=== PATIENT | female | born 1950 | race Caucasian/White ===

== ENCOUNTER 2019-03-15 09:10 | Inpatient (IN) ==
--- NOTE | 2019-02-23 14:40 | PAT Medication Instructions ---
Medication Instructions Date of Service February 23, 2019 Home Medications aspirin [Aspir-81] 81 mg PO QAM celecoxib [Celebrex] 200 mg PO QAM PRN cholecalciferol (vitamin D3) [Vitamin D3] 400 unit PO QAM simvastatin 20 mg PO PM ASK your surgeon for instructions celecoxib [Celebrex] 200 mg PO QAM PRN DO NOT take the morning of surgery cholecalciferol (vitamin D3) [Vitamin D3] 400 unit PO QAM Take morning of surgery With a small sip of water, OTHERWISE NOTHING TO EAT OR DRINK AFTER MIDNIGHT: aspirin [Aspir-81] 81 mg PO QAM Take evening before surgery simvastatin 20 mg PO PM Other Notes If you have any questions please call us at [phone] or [phone] or [phone] or [phone]
--- NOTE | 2019-02-27 13:16 | Anesthesiology Consultation ---
Date of Service February 27, 2019 Assessment & Plan (1) Encounter for pre-operative examination: - Cardio: 02/22/19: no active cardiovascular conditions.. no cardiovascular risk factors.. From a functional capacity standpoint, she is limited due to left hip pain however she can complete activities of daily living at a 4 METS level.. do not recommend further invasive or noninvasive testing prior to undergoing planned surgery. Should be considered a low cardiovascular risk candidate." Given reported hx of MVP per patient (no murmur noted on cardio exam; I/ systolic murmur on PAT exam), ECHO ordered for further evaluation but "ECHO not required prior to surgery if unable to schedule prior to surgery date" per cardio. ECHO was done 03/13; ECHO still not reviewed 03/14 PM. [facility] (Dr. Son) will fax ECHO report to same day for anesthesiologist to review AM DOS. - PCP: 03/13/19: Preop testing reviewed. "I find nothing in these reports that would delay her planned surgical procedure. Patient is felt to be an acceptable risk for the planned procedure." Chart Review Chart Review: Patient seen in Pre Admission Testing Teaching & Discussion Pre-Anesthesia Teaching/Discussion Notes: Instructed NPO after midnight before surgery,except medications with 15 cc of water. Medication instructions provided according to the PAT guidelines. History Surgery Operation Date: 03/15/19 11:30 Proposed Procedures p Left Anterior Total Hip Arthroplasty - Valeriano Jeffers DO Height/Weight Height: 5 ft 6 in Weight: 73.1 kg Allergies Allergy/AdvReac Type Severity Reaction Status Date / Time No Known Allergies Allergy Verified 02/20/19 12:13 Medications Home Medications Medication Instructions Recorded Confirmed Last Taken aspirin [Aspir-81] 81 mg PO QAM 02/20/19 02/20/19 Unknown celecoxib [Celebrex] 200 mg PO QAM PRN 02/20/19 02/20/19 Unknown cholecalciferol (vitamin D3) 400 unit PO QAM 02/20/19 02/20/19 Unknown [Vitamin D3] simvastatin 20 mg PO PM 02/20/19 02/20/19 Unknown Past Medical History Medical History Chronic back pain OCCASIONAL GERD (gastroesophageal reflux disease) CONTROLLED Hyperlipidemia MVP (mitral valve prolapse) HX- NO PREMED FOR DENTAL WORK Osteoarthritis Exercise / Class Metabolic Activity III < 4 Walking/Shop/Light housework Past Surgical History Surgical History History of bilateral tubal ligation History of colonoscopy X2 History of tonsillectomy Past Anesthesia History No Hx of Anesthesia Complications and No Family Hx of Anesthesia Complications History of PONV No Hx of PONV and No Hx of Motion Sickness Social History Smoking Status: Never smoker Do You Dip or Chew Tobacco: No Hx Alcohol Use: No Hx Substance Use: No substance use type: does not use Review of Systems Patient denies chest pain, shortness of breath, cough, wheezing, palpitations. Physical Exam Vital Signs VITALS BP 161/80 (120/80 at appointment earlier today)* P 62 TEMP 97.9 SP02 94%RA RESP 18 PHYSICAL Full neck and c-spine range of motion. Full TMJ range of motion. TMD 2 finger breaths (small chin) Mallampati Score 3 Dentition: missing molars, permanent retainer wire on lower teeth, cap on molar Lungs: clear throughout to auscultation Cardiac: regular rate and rhythm, I/ systolic murmur Spine: normal Carotid arteries: negative bruit Extremities: no edema Testing Laboratory Results 02/27/19 14:01 02/27/19 14:01 02/27/19 14:01 Urine Color Yellow Urine Appearance Clear Urine pH 5.0 Ur Specific [place] 1.018 Urine Protein Negative Urine Glucose (UA) Negative Urine Ketones Negative Urine Nitrite Negative Ur Leukocyte Esterase 1+ H Urine WBC (Auto) 10-30 H Urine RBC (Auto) 0-4 U Hyaline Cast (Auto) 1-5 U Epithel Cells (Auto) >30 H Urine Bacteria (Auto) Negative 02/27/19 PT 10.9 PTT 27.1 INR 1.1 HGBA1C 5.4% T&S O+Ab- Electrocardiogram Date: 02/22/19 SR at 67bpm. Low voltage in precordial leads. Chest X-Ray Date: 02/27/19 Findings: + NAD Atherosclerosis of the aortic arch.
--- NOTE | 2019-02-27 14:22 | XRay Report ---
XR chest Pre-admission PA/Lat CLINICAL HISTORY: 68 years-old Female presenting with preoperative evaluation. TECHNIQUE: PA and lateral views of the chest were obtained. COMPARISON: None. FINDINGS: Atherosclerosis of the aortic arch. Cardiac silhouette normal in size. Lungs and pleural spaces clear . Osseous structures normal. Upper abdomen normal. IMPRESSION: 1. No acute cardiopulmonary disease. Electronically signed by: Terrell Reid M.D. 02/27/2019 2:21 PM
[2019-02-27 16:06] LABS: Basophils # (auto) 0.05 K/uL (0-0.2); Basophils % (auto) 0.8 %; Eosinophils # (auto) 0.09 K/uL (0-0.5); Eosinophils % (auto) 1.5 %; Hematocrit (blood only) 41.9 % (37-47); Hemoglobin 14.2 g/dL (12.0-16.0); Immature Granulocytes # (auto) 0.02 K/uL (0.00-0.02); Immature Granulocytes % (auto) 0.3 %; Lymphocytes # (auto) 2.23 K/uL (1.2-3.4); Lymphocytes % (auto) 36.4 %; Mean Corpuscular Hgb Conc 33.9 g/dL (32-36); Mean Corpuscular Volume 90.3 fL (80-100); Mean Platelet Volume 11.6 fL (7.4-10.4); Monocytes # (auto) 0.48 K/uL (0.11-0.59); Monocytes % (auto) 7.8 %; Neutrophils # (auto) 3.25 K/uL (1.4-6.5); Neutrophils % (auto) 53.2 %; Platelet Count 205 K/uL (130-400); RDW Coefficient of Variation 12.7 % (11.5-14.5); Red Blood Count 4.64 M/uL (4.2-5.4); White Blood Count 6.12 K/uL (4.8-10.8)
[2019-02-27 16:10] LABS: Appearance Urine Clear (Clear); Bacteria Urine Automated Negative (Negative); Bilirubin Urine Negative (Negative); Blood Urine Negative (Negative); Color Urine Yellow; Epithelial Cell Urine Auto >30 /lpf (0-5); Glucose Urine UA Negative (Negative); Ketones Urine Negative (Negative); Leukocyte Esterase Urine 1+ (Negative); Nitrite Urine Negative (Negative); Protein Urine Negative (Negative); RBC Urine Automated 0-4 /hpf (0-4); Specific Gravity Urine 1.018 (1.000-1.030); Urobilinogen Urine Negative (Negative)
[2019-02-27 16:13] LABS: Albumin Level 3.6 gm/dl (3.4-5.0); BUN Creatinine Ratio 22.9 (10-20); Creatinine Clr Calc Pharmacy 84.8 ml/min; Est GFR (African American) 105.7; Est GFR (Non-African American) 91.2; Potassium 4.1 mmol/L (3.5-5.1)
[2019-02-27 16:19] LABS: INR 1.1 (0.9-1.1); Partial Thromboplastin Time 27.1 Seconds (21.0-31.0); Prothrombin Time 10.9 Seconds (9.0-12.0)
[2019-02-28 05:58] LABS: Estimated Average Glucose 108 mg/dl; Hemoglobin A1C 5.4 % (4.5-5.6)
--- NOTE | 2019-03-14 22:29 | History & Physical Report ---
Date of Service March 14, 2019 Assessment & Plan (1) Degenerative joint disease of left hip: I have indicated the patient for left anterior total hip replacement. The risks, benefits and complications of surgery were explained to the patient which include but not limited to infection, acute blood loss, DVT/PE, injury to nerves, vessels, bone, soft tissue, arthrofibrosis, chronic pain, failure of the prosthesis, hip dislocation, leg length discrepancy, need for additional surgery, cardiac and pulmonary events and . The patient wished to proceed with surgery and informed consent was obtained at this time. We will plan for ASA BID post-operatively for DVT prophylaxis. Upon discharge the patient will be discharged home with home health services. Appropriate clearances by PCP, cardiology were obtained. Patient has no UTI symptoms. History of Present Illness Chief Complaint: Left hip pain/djd Primary Care Provider: JALEN PCP The patient is a 69 year old female who presents with complaints of severe left hip pain and DJD. The patient has failed outpatient conservative treatments to this point which included NSAIDs, IA corticosteroid injection, home exercise, walking program. The patient's pain and limited function have progressed to the point where they severely hinder their activities of daily living and they no longer tolerate exercise programs. They are requesting to proceed with total hip replacement surgery. Allergies Allergy/AdvReac Type Severity Reaction Status Date / Time No Known Allergies Allergy Verified 03/15/19 09:42 Home Medications Home Medications Medication Instructions Recorded Confirmed Type aspirin [Aspir-81] 81 mg PO QAM 02/20/19 03/15/19 History celecoxib [Celebrex] 200 mg PO QAM PRN 02/20/19 03/15/19 History cholecalciferol (vitamin D3) 400 unit PO QAM 02/20/19 03/15/19 History [Vitamin D3] simvastatin 20 mg PO PM 02/20/19 03/15/19 History Past Med/Surg History Medical History Chronic back pain OCCASIONAL GERD (gastroesophageal reflux disease) CONTROLLED Hyperlipidemia MVP (mitral valve prolapse) HX- NO PREMED FOR DENTAL WORK Osteoarthritis Surgical History History of bilateral tubal ligation History of colonoscopy X2 History of tonsillectomy Social History Preferred Language: Croatian Communication Ability: Effective Manufacturing Engineer Required: No Beliefs That Will Affect Care: None Current Living Situation: Spouse Other Information That Helps Us Care for You: No Feels Safe at Home: Yes Safety Concerns: Feels Safe At This Time Smoking Status: Never smoker Do You Dip or Chew Tobacco: No Second Hand Exposure: No Hx Alcohol Use: No Hx Substance Use: No Review of Systems Review of Systems: All systems reviewed & are unremarkable except as noted in HPI & below Constitutional: as per Subjective / HPI Physical Exam Physical Exam: LLE NVSI +EHL/FHL/TA/GS SILT grossly, +2 DP pulse, compartments soft NT, limited painful ROM, antalgic gait Constitutional: WD/WN, vitals as above Eyes: PERRL, conjunctivae normal, anicteric sclerae ENMT: external ear and nose normal, oropharynx normal Neck: trachea midline, no thyromegaly Respiratory: normal respiratory effort, lungs clear to auscultation Cardiovascular: RRR, no murmur, no edema Gastrointestinal (Abdomen): normal bowel sounds, soft, nontender, no hepatosplenomegaly Musculoskeletal: no cyanosis or clubbing, extremities motor strength 5/5 Skin: no rashes, warm and dry Neurologic: patellar DTR's 2+ bilat, sensation intact Psychiatric: A+Ox3, euthymic affect Lymphatic: no cervical or axillary lymphadenopathy Results & Data Diagnostic Findings Multiple views of the hip demonstrates severe DJD with complete loss of the joint space. +osteophytes, +sclerosis, +subchondral cysts.
[~2019-03-15 09:10] MED LIST: ACETAMINOPHEN 500 MG TAB PO SCH; BUPIVACAINE 0.5 % 5 MG/1 ML PF 10ML VIAL ONE; CEFAZOLIN 2000MG 2,000 MG/15 ML SYR IV SCH; CeleBREX 200 MG CAP PO SCH; FAMOTIDINE 20 MG TAB PO SCH; LR 500ML BOLUS, THEN 15ML/HR IV SCH; METOCLOPRAMIDE HCL 10 MG TABLET PO SCH; MIDAZOLAM HCL 1 MG/ML 2ML VIAL ONE; TRANEXAMIC ACID 1,000 MG **IV Intra-op IV SCH; TRANEXAMIC ACID 1,000 MG **IV Pre-op IV SCH; dexAMETHasone 4 MG TAB PO SCH; fentaNYL citrate 100 MCG/2 ML VIAL ONE
[2019-03-15] MEDS ORDERED: BACITRACIN INJ 50,000 UNIT VIAL ONE (09:59)
[2019-03-15] MEDS ORDERED: ATROPINE SULFATE 0.1 MG/ML 10ML SYR IV PRN (10:25)
[2019-03-15] MEDS ORDERED: fentaNYL citrate 100 MCG/2 ML VIAL IV PRN (10:25)
[2019-03-15] MEDS ORDERED: ePHEDrine sulfate 50 MG/ML AMP IV PRN (10:25)
[2019-03-15] MEDS ORDERED: ONDANSETRON INJ 2 MG/ML 2 ML VIAL IV PRN ×2 (10:25→14:39)
[2019-03-15] MEDS ORDERED: ROPIVACAINE 0.5% HCL/PF 150 MG, BUPIVACAINE 0.5% MPF 30 ML, EPINEPHrine 30MG/30ML (OR U... INFIL SCH (10:30)
--- NOTE | 2019-03-15 11:05 | History & Physical Bridge Note ---
Date of Service March 15, 2019 History & Physical Bridge Note I have examined the patient, reviewed the History & Physical and in the interval since the performance of the History & Physical I have noted the following changes of clinical significance: no changes noted
[2019-03-15] MEDS ORDERED: PROPOFOL IV EMULSION 10 MG/ML 20 ML VIAL IV ONE (12:06)
[2019-03-15] MEDS ORDERED: ONDANSETRON INJ 2 MG/ML 2 ML VIAL ONE (12:06)
[2019-03-15] MEDS ORDERED: DEXAMETHASONE SOD INJ 4 MG/ML VIAL ONE (12:06)
[2019-03-15] MEDS ORDERED: POVIDONE-IODINE 10% OINT 30 GM TUBE EXT ONE (12:16)
[2019-03-15] MEDS ORDERED: ePHEDrine sulfate 50 MG/ML AMP ONE (12:43)
--- NOTE | 2019-03-15 12:58 | Post Operative Brief Note ---
Immediate Post Op Note v1 Date of Surgery March 15, 2019 Pre & Post Diagnosis Operation Date: 03/15/19 11:30 Pre-Op Diagnosis: Left Hip Degenerative Joint Disease Post-Op Diagnosis: Left Hip Degenerative Joint Disease Procedure Operation Date: 03/15/19 11:30 Actual Procedures p Left Anterior Total Hip Arthroplasty, Uncemented(Left) - Valeriano Jeffers DO Surgeon Valeriano Jeffers DO Merchandising Consultant Javier Lockhart Estimated Blood Loss 85 Findings Consistent with Post-Op Diagnosis Fluids 1800 cc LR Specimens femoral head Anesthesia Type Spinal MAC Complications none Disposition Disposition: Recovery Room Overlapping Procedure I was present for: the critical portions of procedure. I was immediately available: during the entire case. Back up surgeon: was not required during procedure.
--- NOTE | 2019-03-15 13:09 | Operative Report ---
Post Operative Report Pre & Post Diagnosis Operation Date: 03/15/19 11:30 Pre-Op Diagnosis: Left Hip Degenerative Joint Disease Post-Op Diagnosis: Left Hip Degenerative Joint Disease Procedure Operation Date: 03/15/19 11:30 Actual Procedures p Left Anterior Total Hip Arthroplasty, Uncemented(Left) - Valeriano Jeffers DO Surgeon Valeriano Jeffers DO Tassel Snipper Javier Lockhart Estimated Blood Loss 85 Findings Consistent with Post-Op Diagnosis Fluids 1800 cc LR Specimens Femoral head Drains Hemovac drain x1 superficial Anesthesia Type Spinal MAC Complications none Disposition Disposition: Recovery Room Indications The patient is a 69-year-old female who presents with severe progressive left hip DJD who has failed outpatient conservative treatments. I indicated the patient for a anterior total hip replacement and the risks and benefits were explained in detail which include but not limited to infection, bleeding, blood clot, damage to surrounding bone, nerves, vessels, soft tissue, hip dislocation, failure of the prosthesis, leg length discrepancy, need for additional surgery and . The patient agreed to proceed with replacement of the hip and informed consent was obtained. Appropriate clearances were obtained. Description of Procedure COMPONENTS USED: [email or web address] hip system: Acetabulum size 50, femur size 6 high offset, femoral head 32-3, liner 5032, acetabular screw 25 mm x 1. DESCRIPTION OF PROCEDURE: Following satisfactory spinal anesthesia, the patient was placed supine on the OR table. The right leg was placed in the well leg pittman and the left leg in the traction device. The left leg was prepared with ChloraPrep and draped sterilely. A surgical timeout was performed, patient identified and site kasi verified. Appropriate antibiotics were given. A standard anterior approach in the interval between the sartorius and tensor muscles was performed. Dissection was carried down through subcutaneous tissues. Electrocautery was utilized for hemostasis. Circumflex femoral vessels were identified, tied and ligated. The anterior capsular fat pad was removed and the capsulotomy was performed revealing the arthritic femoral neck and head. A femoral neck cut was made with reciprocating saw and the bone fragments removed. The acetabular self-retraining retractor was placed. Acetabular reaming was completed under fluoroscopic guidance, a 50 shell was impacted into an anatomic position and secured with a dome screw. Local anesthetic was placed and following irrigation, the polyethylene liner was placed. The femur was placed into position of external rotation, extension and adduction. Femoral canal was prepared up to the size 6 high offset. Trial reduction with a -3 neck length head showed good soft tissue tension, leg lengths restored, and good fit and fill of the proximal canal using fluoroscopic landmarks. The hip was dislocated. The trial component was removed. The final implant was placed. The hip was irrigated with sterile saline solution and reduced. A Betadine soak was performed. After 3 minutes, the hip was once more irrigated with copious sterile saline solution with bacitracin. Kristina-incisional soft tissue was injected utilizing [place] [employer] which includes a combination of Ropivicaine 0.5% 150mg, Bupivicaine 0.5%/Epinephrine 1:200,000 30ml, Toradol 30mg, Dexamethasone 4mg, Ketamine 10mg, Clonidine 100mcg and NSS 30ml solution. The capsule was then closed with 1-0 Vicryl interrupted figure of eight sutures. The fascia was closed with a running suture of #1 Vicryl, the subcutaneous tissues with 2-0 Vicryl and the skin with a running subcuticular stitch of 3-0 V-Loc. Dermabond prineo and a dry dressing were applied. The patient tolerated the procedure well and was transported to PACU in stable condition. Due to the complex nature of the procedure, the entire surgery was performed with the operational assistance of Javier Lockhart PA-C. The bankruptcy legal assistant, under direct supervision, was involved in the actual performance of all aspects of the surgical procedure including patient positioning, hemostasis, tissue retraction, instrument management and wound closure. I attest to the content of the Intraoperative Record and any orders documented therein. Any exceptions are noted below.
--- NOTE | 2019-03-15 13:22 | Fluoroscopy Report ---
FL hip LT 1V CLINICAL HISTORY: 69 years-old Female presenting with LEFT ANTERIOR HIP. TECHNIQUE: 2 fluoroscopic image(s) recorded as part of an intraoperative procedure. COMPARISON: None. FINDINGS/IMPRESSION: Postsurgical changes of total left hip arthroplasty. Visualized portion of the pelvis intact. No dixon lignment. Please see surgical report for further details. Fluoroscopy dosage (mGy): 9.35. Fluoroscopy time: 73.0 seconds. Number or time of high level fluoroscopy (HLF), digital spot, or digital subtraction images: 0. Electronically signed by: Terrell Reid M.D. 03/15/2019 1:20 PM
--- NOTE | 2019-03-15 14:00 | XRay Report ---
XR hip 1V LT w pelvis CLINICAL HISTORY: Postoperative evaluation. COMPARISON: None FINDINGS: Alignment of the total left hip arthroplasty is anatomic. There is no fracture or unexpect ed radiopaque foreign body. Surgical drain is in place. There is an acetabular screw. Severe right hi p osteoarthritis is noted. IMPRESSION: Expected findings following total left hip arthroplasty. Electronically signed by: Ramses Jones M.D. 03/15/2019 1:59 PM
--- NOTE | 2019-03-15 14:07 | Anesthesiology Progress Note ---
Date of Service March 15, 2019 Anesthesia Post Procedure Vital Signs Vital Signs: Temp Pulse Pulse Resp BP BP Pulse Ox 03/15/19 14:00 69 18 121/68 95 03/15/19 13:50 68 18 114/66 97 03/15/19 13:40 66 19 110/69 97 03/15/19 13:33 36.4 C L 69 21 104/69 100 03/15/19 09:53 36.4 C L 71 20 177/91 H 98 Pain Intensity Left Hip: Pain Intensity: 0 Transfer of Care Handoff Completed per policy Notes Mental Status: alert / awake / arousable Patient Amnestic to Procedure: Yes Nausea / Vomiting: adequately controlled Pain: adequately controlled Airway Patency, RR, SpO2: stable & adequate BP & HR: stable & adequate Hydration State: stable & adequate Neuraxial Anesthesia: was administered and sensory block is resolving Anesthetic Complications: no major complications apparent and Pt Satisfied with anesthetic care
[2019-03-15] MEDS ORDERED: MAGNESIUM HYDROXIDE SUSP 30 ML UDC PO PRN (14:39)
[2019-03-15] MEDS ORDERED: OXYCODONE HCL IR 5 MG TAB (IMMEDIATE RELEASE) PO PRN (14:39)
[2019-03-15] MEDS ORDERED: BISACODYL 10 MG SUPP PR PRN (14:39)
[2019-03-15] MEDS ORDERED: METOCLOPRAMIDE HCL INJ 5 MG/ML 2 ML VIAL IV PRN (14:39)
[2019-03-15] MEDS ORDERED: HYDROmorphone INJ 0.5 MG/0.5 ML SYR IV PRN (14:39)
[2019-03-15] MEDS ORDERED: SODIUM CHLORIDE 0.9% 1000ML 1,000 ML IV SCH (14:39)
[2019-03-15] MEDS ORDERED: NALOXONE HCL 0.4 MG/1 ML VIAL/CARP IV PRN (14:39)
--- NOTE | 2019-03-15 15:50 | Orthopedic Progress Note ---
Date of Service March 15, 2019 Assessment & Plan (1) Degenerative joint disease of left hip: Status post left anterior total hip arthroplasty -Ancef x24 -DVT prophylaxis: SCDs, teds, ASA twice daily -Weight-bear as tolerates left lower extremity -PT/OT -Postoperative x-ray demonstrates well aligned well fixed orthopedic prosthesis without evidence of fracture or dislocation -A.m. lab -Monitor drain output -DC planning Subjective Post Operative Progress Note Patient seenin PACU, comfortable, denies complaints, pain well controlled, no acute issues. Patient still feeling the effects of spinal anesthesia Review of Systems Review of Systems: All systems reviewed & are unremarkable except as noted in HPI & below Constitutional: as per Subjective / HPI Physical Exam Physical Exam: Physical exam limited secondary to spinal anesthesia, slightly able to wiggle toes. +2 dorsalis pedis pulse, compartment soft nontender, dressings clean dry and intact. Constitutional: WD/WN, vitals as above Results & Data Vital Signs (Past 12 Hours) Vital Signs Temp Pulse Pulse Pulse Resp BP BP 03/15/19 15:29 36.3 C L 71 18 151/77 H 03/15/19 14:40 36.4 C L 76 16 124/74 03/15/19 14:20 69 20 122/72 03/15/19 14:10 37.1 C 70 21 117/62 03/15/19 14:00 69 18 121/68 03/15/19 13:50 68 18 114/66 03/15/19 13:40 66 19 110/69 03/15/19 13:33 36.4 C L 69 21 104/69 03/15/19 09:53 36.4 C L 71 20 177/91 H Pulse Ox 03/15/19 15:29 98 03/15/19 14:40 94 03/15/19 14:20 95 03/15/19 14:10 92 03/15/19 14:00 95 03/15/19 13:50 97 03/15/19 13:40 97 03/15/19 13:33 100 03/15/19 09:53 98
[2019-03-15] MEDS: KETOROLAC TROMETHAMINE 15 MG/ML VIAL IV SCH ×2 (16:05→21:21)
[2019-03-15] MEDS: CEFAZOLIN 2000MG 2,000 MG/15 ML SYR IV SCH (19:31)
[2019-03-15] MEDS ORDERED: SIMVASTATIN 20 MG TAB PO SCH (21:00)
[2019-03-15] MEDS ORDERED: SENNA 8.6 MG TAB PO SCH (21:00)
[2019-03-15] MEDS: ACETAMINOPHEN 500 MG TAB PO SCH (21:21)
[2019-03-15] MEDS: DOCUSATE SODIUM 100 MG CAP PO SCH (21:21)
[2019-03-16] MEDS: CEFAZOLIN 2000MG 2,000 MG/15 ML SYR IV SCH (03:26)
[2019-03-16] MEDS: KETOROLAC TROMETHAMINE 15 MG/ML VIAL IV SCH ×2 (03:26→07:32)
[2019-03-16] MEDS: ACETAMINOPHEN 500 MG TAB PO SCH (05:42)
[2019-03-16 05:55] LABS: Basophils # (auto) 0.01 K/uL (0-0.2); Basophils % (auto) 0.1 %; Hematocrit (blood only) 34.8 % (37-47); Immature Granulocytes # (auto) 0.04 K/uL (0.00-0.02); Immature Granulocytes % (auto) 0.3 %; Lymphocytes # (auto) 1.32 K/uL (1.2-3.4); Lymphocytes % (auto) 9.4 %; Mean Corpuscular Hgb Conc 34.5 g/dL (32-36); Mean Corpuscular Volume 89.2 fL (80-100); Monocytes # (auto) 1.04 K/uL (0.11-0.59); Monocytes % (auto) 7.4 %; Neutrophils # (auto) 11.65 K/uL (1.4-6.5); Neutrophils % (auto) 82.8 %; Platelet Count 176 K/uL (130-400); RDW Coefficient of Variation 12.7 % (11.5-14.5); RDW Standard Deviation 40.8 fL (36.4-46.3); White Blood Count 14.06 K/uL (4.8-10.8)
[2019-03-16 06:19] LABS: BUN Creatinine Ratio 21.8 (10-20); Calcium 8.1 mg/dl (8.5-10.1); Creatinine Clr Calc Pharmacy 67.8 ml/min; Est GFR (African American) 87.2; Est GFR (Non-African American) 75.2; Potassium 4.3 mmol/L (3.5-5.1)
[2019-03-16] MEDS: DOCUSATE SODIUM 100 MG CAP PO SCH (07:32)
[2019-03-16] MEDS ORDERED: MULTIVITAMIN TAB PO SCH (09:00)
[2019-03-16] MEDS ORDERED: ASPIRIN 325 MG ECTAB PO SCH (09:00)
--- NOTE | 2019-03-16 09:18 | Orthopedic Progress Note ---
Date of Service March 16, 2019 Assessment & Plan (1) Degenerative joint disease of left hip: Status post left anterior total hip arthroplasty POD#1 -Ancef x24 -DVT prophylaxis: SCDs, teds, ASA twice daily -Weight-bear as tolerates left lower extremity -PT/OT -Postoperative x-ray demonstrates well aligned well fixed orthopedic prosthesis without evidence of fracture or dislocation -A.m. lab - hgb 12.0 -Monitor drain output 20cc/shift, DC today -DC planning: home with Subjective Post Operative Progress Note Patient seen sitting up in bed, comfortable, denies complaints, pain well controlled, no acute issues. Review of Systems Review of Systems: All systems reviewed & are unremarkable except as noted in HPI & below Constitutional: as per Subjective / HPI Physical Exam Physical Exam: LLE NVSI +EHL/FHL/TA/GS SILT grossly, +2 DP pulse, compartments soft NT, dressing cdi. Constitutional: WD/WN, vitals as above Results & Data Vital Signs (Past 12 Hours) Vital Signs Temp Pulse Pulse Resp BP BP Pulse Ox 03/16/19 07:52 36.4 C L 68 20 112/69 95 03/16/19 03:33 36.5 C 68 16 120/67 94 03/15/19 23:37 36.5 C 64 16 109/63 96
[2019-03-16] MEDS ORDERED: CeleBREX 200 MG CAP PO SCH (21:00)
--- NOTE | 2019-03-17 12:06 | Discharge Summary ---
Date of Service March 17, 2019 Admission HPI Per Admitting Provider The patient is a 69 year old female who presents with complaints of severe left hip pain and DJD. The patient has failed outpatient conservative treatments to this point which included NSAIDs, IA corticosteroid injection, home exercise, walking program. The patient's pain and limited function have progressed to the point where they severely hinder their activities of daily living and they no longer tolerate exercise programs. They are requesting to proceed with total hip replacement surgery. Principal Diagnosis Left anterior total hip replacement Discharge Exam LLE NVSI +EHL/FHL/TA/GS SILT grossly, +2 DP pulse, compartments soft NT, dressing cdi. Constitutional WD/WN, vitals as above Discharge Data Allergies Allergy/AdvReac Type Severity Reaction Status Date / Time No Known Allergies Allergy Verified 03/15/19 09:42 Consultations 03/16/19 08:00 Consult Case Management - Discharge Planning Routine Procedures Performed Operation Date: 03/15/19 11:30 Actual Procedures p Total Hip Arthroplasty Uncemt Anterior(Left) - Valeriano Jeffers DO Ordered Studies 03/15/19 11:30 FL fluoroscopy <1hr Routine FL hip LT 1V Routine Hospital Course (1) Degenerative joint disease of left hip: The patient is a 69 -year-old female who presents with long standing history of severe left hip DJD and failed outpatient conservative treatments including NSAIDs, bracing, injections and home walking/exercise program. The patient's symptoms have progressed to the point where it has been difficult to perform e remedios normal activities of daily living. I indicated the patient for a left anterior total hip arthroplasty, the risks, benefits and complications of the procedure include but not limited to infectio n, bleeding, damage to bone, nerves, vessels, surrounding soft tissue, may develop blood clots, loss of function, leg length discrepancy, dislocation, failure of the components, loosening of the components, the need for additional surgery and . The patient wished to proceed with surgery at this time and informed consent was obtained. Hospital Course: On 03/15/19 the patient was taken to the operating room, adequate anesthesia administered and underwent a left anterior total hip arthroplasty. The patient tolerated the procedure well and was taken to the PACU in stable condition. Pos t-operatively the patient was started on a DVT ppx medication and given appropriate IV antibiotics. Consults were placed to physical therapy, occupational therapy and case management. On POD#1, the patient did well overnight and their pain was well controlled. Labs were drawn and the Hgb was 12.0. The patient progressed well with PT. Dressings were changed at this time and the incision was clean, dry and intact. HMV drain had low output, 20cc/shift and DC'd. The patients hospital stay was relatively uneventful and they were deemed stable by the orthopedic team and consultants to be discharged home with HH on 03/16/19. Discharge Instructions: Upon discharge the patient may weight bear as tolerates through their operative extremity. They were instructed to keep the incision clean and dry at all times. The patient may shower but should not submerge the incision, avoid bathing, pools and hot tubes. The patient was given a script for pain medication and should take as instructed. The patient was given a script for DVT ppx ASA 325mg BID and should take as directed. The patient was instructed to not drive or travel for long distances until cleared to do so. If the patie nt develops any symptoms of fevers, chills, nausea, vomiting, increased redness, swelling, pain or drainage from the surgical site, they should notify the office and/or proceed to the nearest emergency room. The patient should follow up in 10-14 days after surgery for their routine post-operative follow-up appointment and should call the office to confirm the date and time. Status post left anterior total hip arthroplasty POD#1 -Ancef x24 -DVT prophylaxis: SCDs, teds, ASA twice daily -Weight-bear as tolerates left lower extremity -PT/OT -Postoperative x-ray demonstrates well aligned well fixed orthopedic prosthesis without evidence of fracture or dislocation -A.m. lab - hgb 12.0 -Monitor drain output 20cc/shift, DC today -DC planning: home with HH Total Time Total Time Spent Total Time Spent (In Minutes): 60 minutes Total Time Includes: Examination of the Patient, Discharge Planning, Medication Reconciliation and Communication With Other Providers Discharge Plan Discharge Items Patient Disposition: Home - Home Health Services Reason For Visit: LEFT HIP OSTEOARTHRITIS Discharge Diagnosis: Left anterior total hip replacement Discharge Goals: Decrease discomfort, Improve function, Increase independence and Therapeutic intervention Activity: Per 'Additional Instructions' section Lifting: Wait until after follow-up appointment Bathing Comment: No bathing, pools or hot tubs Sexual Activity: Wait until after follow-up appointment Exercise/Sports: Wait until after follow-up appointment Driving/Machine Use Comment: No driving till cleared by your surgeon Weightbearing: Left weightbearing Non-emergency contact: Primary Care Provider and Surgeon Call non-emergency contact if: you have any medication questions, your symptoms worsen, your pain is not controlled, your pain is worsening, your pain is unusual for you, your pain is concerning for you, you have a fever, your temperature is above 101, your wound has increased redness, your wound has increased drainage and your wound pain has increased Follow-up/Referrals: PCP,NO [Primary Care Provider] - Diet: Regular Addtl Provider Instructions: ACTIVITY RECOMMENDATIONS: SELF CARE INSTRUCTIONS AFTER TOTAL HIP REPLACEMENT : Direct Anterior Approach Until the incision and soft tissues around your hip have healed, there is a possibility that the hip prosthesis could dislocate. A. Hip flexion ( Up & Down out of chair or steps ) may be difficult. This is normal. B. Numbness in front of the thigh is also normal for a few weeks. C. Use hand rails when walking on stairs. D. Wear low heeled shoes with non-slip soles. E. Be sure that your floors are free of things that could trip you - throw rugs, electrical cords, small objects. Avoid wet and waxed floors, especially with crutches and canes. F. Try to walk several times a day with rest periods between. G. Continue with all the exercises taught to you in the hospital. Again, make walking a part of your daily routine. SPECIAL CARE INSTRUCTIONS: VERY IMPORTANT TO READ AND REVIEW A. You may still be at risk for phlebitis and blood clots. 1. Wear surgical stockings (KARLY hose) for 2 weeks after surgery to improve circulation and reduce swelling. 2. Take Aspirin 325mg twice daily for 4 weeks or as directed by your doctor. This is your blood thinner. 3. High risk patients may be prescribed a stronger blood thinner if necessary. 4. If you are on Coumadin normally, your family doctor/statistical assistant should monitor your blood work. Expect a phone call the day of or the day after bloodwork is drawn to adjust your dosage. B. You must take antibiotics before having dental work, bladder, bowel and other surgery. Your doctor will provide you with a permanent card to carry describing precautions. C. Call [facility] if you have a fever, redness or swelling around the incision, cloudy drainage from incision, or sudden increase in pain in your hip, not relieved by your regular pain medication. D. Please call the office at if you have any concerns or questions about your operation or recovery. * YOU MAY SHOWER, NO TUB BATHS UNTIL CLEARED BY YOUR DOCTOR. - Keep an extra close eye on the top portion of your incision. Be sure to keep clean & dry. * WEAR KARLY HOSE 20 HOURS PER DAY FOR 2 WEEKS. * YOU MAY PROGRESS FROM A WALKER, TO A CANE, TO INDEPENDENT AT YOUR OWN PACE. * MOST PATIENTS WILL HAVE HOME NURSING FOR THERAPY. IF YOU DECIDE TO DO OUTPATIENT PHYSICAL THERAPY, PLEASE SCHEDULE THIS 3 TIMES PER WEEK. * DERMABOND Prineo- This is a mesh tape dressing that is covered with glue. It should remain in place until the incision is properly healed, usually 10-14 days. This dressing is designed to naturally slough off. You may trim the excess mesh tape as it peels off. Incision may be briefly wet in a shower. Dry immediately by blotting with a clean, dry towel. Do not bath or swim until instructed by your doctor. Do not scratch, rub, or pick at the dressing. Do not apply any topical ointments or lotions until dressing is completely removed and/or instructed by your doctor. There may be a small piece of suture material at one end of your incision. Do not pull or trim this. If it is bothersome or catching on clothing, you may cover it with a band-aid. FOLLOW UP VISIT: If appointment is not already scheduled: Please call [facility] to make a follow-up appointment for 2 weeks after your surgery at . Prescriptions: New acetaminophen [Tylenol Extra Strength] 500 mg Tablet 1,000 mg PO Q8 PRN (Reason: pain) Qty: 90 RF: 0 aspirin 325 mg Tablet,Delayed Release (Dr/Ec) 325 mg PO BID 28 Days Qty: 56 RF: 0 celecoxib [Celebrex] 200 mg Capsule 200 mg PO BID PRN (Reason: pain) Qty: 28 RF: 0 oxycodone 5 mg Tablet 5 mg PO Q6H MDD 6 tabs PRN (Reason: pain) Qty: 30 RF: 0 sennosides [Senokot] 8.6 mg Tablet 17.2 mg PO HS PRN (Reason: constipation) Qty: 28 RF: 0 Continued simvastatin 20 mg Tablet 20 mg PO PM RF: 0 cholecalciferol (vitamin D3) [Vitamin D3] 400 unit Tablet 400 unit PO QAM RF: 0 Discontinued celecoxib [Celebrex] 200 mg Capsule 200 mg PO QAM PRN (Reason: Pain) RF: 0 aspirin [Aspir-81] 81 mg Tablet,Delayed Release (Dr/Ec) 81 mg PO QAM RF: 0 Stand-Alone Forms: [facility], [facility] Discharge Orders: Discharge Order (Routine); Ordered 03/16/19 Ordered By: Valeriano Jeffers Admission Data Admit Date/Time: 03/15/19 13:39 Attending Provider: Valeriano Jeffers Admit Provider: Valeriano Jeffers Primary Care Provider: PCP,NO Service: Surgical Services Other Interventions: Discharge Summary Assessment (RN) Last Done: 03/16/19 11:17 DC Date/Time DO NOT enter until pt leaves facility: 03/16/19 13:11
== END 2019-03-16 13:11 | disposition home health service (06) | DRG 470 ==
LOC: ASU 09:10 → 3E 13:39

== ENCOUNTER 2019-11-27 07:14 | Inpatient (IN) ==
--- NOTE | 2019-11-13 10:31 | PAT Medication Instructions ---
Medication Instructions Date of Service November 13, 2019 Home Medications Medication Instructions Recorded acetaminophen [Tylenol Extra 1,000 mg PO Q8 PRN #90 tab 03/15/19 Strength] oxycodone 5 mg PO Q6H PRN #30 tab MDD 6 tabs 03/15/19 cholecalciferol (vitamin D3) [Vitamin D3] 1,000 unit PO QAM simvastatin 20 mg PO PM acetaminophen [Tylenol Extra Strength] 1,000 mg PO Q8 PRN oxycodone 5 mg PO Q6H PRN #30 tab MDD celecoxib [Celebrex] 200 mg PO QAM PRN sennosides [Senokot] 17.2 mg PO HS ASK your surgeon for instructions celecoxib [Celebrex] 200 mg PO QAM PRN DO NOT take the morning of surgery cholecalciferol (vitamin D3) [Vitamin D3] 1,000 unit PO QAM Take morning of surgery With a small sip of water, OTHERWISE NOTHING TO EAT OR DRINK AFTER MIDNIGHT: acetaminophen [Tylenol Extra Strength] 1,000 mg PO Q8 PRN (okay to take up to 4 hours prior to surgery if needed) oxycodone 5 mg PO Q6H PRN #30 tab MDD (okay to take up to 4 hours prior to surgery if needed) Take evening before surgery sennosides [Senokot] 17.2 mg PO HS simvastatin 20 mg PO PM acetaminophen [Tylenol Extra Strength] 1,000 mg PO Q8 PRN (if needed) oxycodone 5 mg PO Q6H PRN (if needed) Other Notes If you have any questions please call us at [phone] or [phone] or [phone] or [phone]
--- NOTE | 2019-11-14 15:37 | Anesthesiology Consultation ---
Date of Service November 14, 2019 Assessment & Plan (1) Encounter for pre-operative examination: PCP clearance 11/21/2019: "I find no significant abnormalities that would delay her planned surgical procedure. As noted she had cardiac clearance performed by her cardiology group and was felt to be an acceptable risk from cardiac standpoint." Cardiology clearance 11/07/2019: "Based on history physical examination and the above information, do not recommend further invasive or noninvasive cardiovascular testing or procedures prior to undergoing planned hip replacement surgery. Patient should be considered a low cardiovascular risk candidate." Chart Review Chart Review: Acceptable Risk for Surgery and Patient seen in Pre Admission Testing Teaching & Discussion Instructed NPO after midnight before surgery, except medications with 15 cc of water. Medication instructions provided according to the PAT guidelines. History Surgery Operation Date: 11/27/19 10:05 Proposed Procedures p Right Anterior Total Hip Arthroplasty - Valeriano Jeffers DO Height/Weight Height: 5 ft 6 in Weight: 70.76 kg Allergies Allergy/AdvReac Type Severity Reaction Status Date / Time No Known Allergies Allergy Verified 11/02/19 10:22 Medications Home Medications Medication Instructions Recorded Confirmed Last Taken cholecalciferol (vitamin D3) 1,000 unit PO QAM 02/20/19 11/02/19 03/14/19 17:00 [Vitamin D3] simvastatin 20 mg PO PM 02/20/19 11/02/19 03/14/19 20:00 acetaminophen [Tylenol Extra 1,000 mg PO Q8 PRN #90 tab 03/15/19 11/02/19 Unknown Strength] oxycodone 5 mg PO Q6H PRN #30 tab MDD 6 tabs 03/15/19 11/02/19 Unknown celecoxib [Celebrex] 200 mg PO QAM PRN 11/02/19 11/02/19 Unknown sennosides [Senokot] 17.2 mg PO HS 11/02/19 11/02/19 Unknown Past Medical History Medical History Chronic back pain OCCASIONAL Essential (primary) hypertension Patient states normally 140s systolic, PCP has said if numbers increase will discuss HTN meds GERD (gastroesophageal reflux disease) CONTROLLED Hyperlipidemia Osteoarthritis Exercise / Class Metabolic Activity II 4-5 Yardwork/Stairs/Walk up hill Past Surgical History Surgical History History of bilateral tubal ligation History of colonoscopy X2 History of tonsillectomy History of total hip arthroplasty LEFT Varicose vein of leg RIGHT LEG-ABLATION Past Anesthesia History No Hx of Anesthesia Complications and No Family Hx of Anesthesia Complications History of PONV No Hx of PONV and No Hx of Motion Sickness Social History Smoking Status: Never smoker Do You Dip or Chew Tobacco: No Hx Alcohol Use: Yes Alcohol type: beer alcohol intake frequency: holidays/special occasions only (very rare) Hx Substance Use: No substance use type: does not use Review of Systems Pt denies any recent chest pain, shortness of breath, palpitations, cough, fever or URI. Physical Exam Vital Signs BP: 151/83 P: 62bpm SPO2: 97% RA T: 97.5 F R: 18 ENMT Mouth: + dental restorations (1 crown); no chipped teeth and no loose teeth Thyromental Distance: < 3.5 Finger Breadths (3) Mallampati Class: II Neck normal visual inspection; neck extension not limited Respiratory normal respiratory effort Auscultation: lungs clear to auscultation bilaterally Cardiovascular Rate/Rhythm: regular rate and regular rhythm Heart Sounds: no murmur Testing Laboratory Results 11/14/19 15:43 11/14/19 15:43 PT 10.8 Seconds (9.0-12.0) 11/14/19 15:43 INR 1.1 (0.9-1.1) 11/14/19 15:43 APTT 26.1 Seconds (21.0-31.0) 11/14/19 15:43 Hemoglobin A1c 5.3 % (4.5-5.6) 11/14/19 15:43 Urine Color Yellow 11/14/19 15:43 Urine Appearance Clear (Clear) 11/14/19 15:43 Urine pH 5.0 (4.5-7.5) 11/14/19 15:43 Ur Specific [place] 1.014 (1.000-1.030) 11/14/19 15:43 Urine Protein Negative (Negative) 11/14/19 15:43 Urine Glucose (UA) Negative (Negative) 11/14/19 15:43 Urine Ketones Negative (Negative) 11/14/19 15:43 Urine Nitrite Negative (Negative) 11/14/19 15:43 Ur Leukocyte Esterase Negative (Negative) 11/14/19 15:43 Blood Type O Positive 11/14/19 15:43 Antibody Screen NEGATIVE 11/14/19 15:43 Electrocardiogram Date: 02/22/19 Findings: + NSR @ (67bpm) Low voltage QRS in precordial leads. Chest X-Ray Date: 02/27/19 Findings: + NAD Echocardiogram Date: 03/13/19 EF: 60% LV size, wall thickness and systolic function are normal. RV systolic function is normal. Cannot exclude a bicuspid AV, trace AI. No MVP is seen on the study and no significant MR either. Normal RVSP.
[2019-11-14 16:15] LABS: Basophils # (auto) 0.04 K/uL (0-0.2); Basophils % (auto) 0.7 %; Eosinophils # (auto) 0.18 K/uL (0-0.5); Hematocrit (blood only) 42.3 % (37-47); Hemoglobin 14.5 g/dL (12.0-16.0); Immature Granulocytes # (auto) 0.03 K/uL (0.00-0.02); Immature Granulocytes % (auto) 0.5 %; Lymphocytes # (auto) 2.34 K/uL (1.2-3.4); Lymphocytes % (auto) 39.3 %; Mean Corpuscular Hgb Conc 34.3 g/dL (32-36); Mean Corpuscular Volume 90.6 fL (80-100); Mean Platelet Volume 11.4 fL (7.4-10.4); Monocytes # (auto) 0.67 K/uL (0.11-0.59); Monocytes % (auto) 11.3 %; Neutrophils # (auto) 2.69 K/uL (1.4-6.5); Neutrophils % (auto) 45.2 %; Platelet Count 199 K/uL (130-400); RDW Coefficient of Variation 13.3 % (11.5-14.5); RDW Standard Deviation 43.5 fL (36.4-46.3); Red Blood Count 4.67 M/uL (4.2-5.4); White Blood Count 5.95 K/uL (4.8-10.8)
[2019-11-14 16:19] LABS: Appearance Urine Clear (Clear); Bilirubin Urine Negative (Negative); Blood Urine Negative (Negative); Color Urine Yellow; Glucose Urine UA Negative (Negative); Ketones Urine Negative (Negative); Leukocyte Esterase Urine Negative (Negative); Nitrite Urine Negative (Negative); Protein Urine Negative (Negative); Specific Gravity Urine 1.014 (1.000-1.030); Urobilinogen Urine Negative (Negative)
[2019-11-14 16:23] LABS: Alanine Aminotransferase 25 U/L (12-78); Albumin Level 3.6 gm/dl (3.4-5.0); Aspartate Aminotransferase 19 U/L (15-37); BUN Creatinine Ratio 15.8 (10-20); Bilirubin Direct < 0.1 mg/dl (0-0.2); Blood Urea Nitrogen 11 mg/dl (7-18); Calcium 8.8 mg/dl (8.5-10.1); Carbon Dioxide 29 mmol/L (21-32); Chloride 109 mmol/L (98-107); Est GFR (African American) 100.7; Est GFR (Non-African American) 86.9; Glucose 88 mg/dl (70-99); Potassium 4.7 mmol/L (3.5-5.1); Sodium 141 mmol/L (136-145)
[2019-11-14 16:26] LABS: Alkaline Phosphatase 86 U/L (45-117); Bilirubin,Total 0.5 mg/dl (0.2-1)
[2019-11-14 16:28] LABS: INR 1.1 (0.9-1.1); Partial Thromboplastin Time 26.1 Seconds (21.0-31.0); Prothrombin Time 10.8 Seconds (9.0-12.0)
[2019-11-15 06:15] LABS: Estimated Average Glucose 105 mg/dl; Hemoglobin A1C 5.3 % (4.5-5.6)
--- NOTE | 2019-11-26 20:32 | History & Physical Report ---
Date of Service November 26, 2019 Assessment & Plan (1) Degenerative joint disease of right hip: I have indicated the patient for right anterior total hip replacement. The risks, benefits and complications of surgery were explained to the patient which include but not limited to infection, acute blood loss, DVT/PE, injury to nerves, vessels, bone, soft tissue, arthrofibrosis, chronic pain, failure of the prosthesis, hip dislocation, leg length discrepancy, need for additional surgery, cardiac and pulmonary events and . The patient wished to proceed with surgery and informed consent was obtained at this time. We will plan for ASA BID post-operatively for DVT prophylaxis. Upon discharge the patient will be discharged home with home health services. Appropriate clearances by PCP, cardiology were obtained. History of Present Illness Chief Complaint: Right hip pain/djd Primary Care Provider: Gerson Yanez The patient is a 69 year old female who presents with complaints of severe right hip pain and DJD. The patient has failed outpatient conservative treatments to this point which included NSAIDs, IA corticosteroid injection, PT, home exercise/walking program. The patient's pain and limited function have progressed to the point where they severely hinder their activities of daily living and they no longer tolerate exercise programs. They are requesting to proceed with total hip replacement surgery. Allergies Allergy/AdvReac Type Severity Reaction Status Date / Time No Known Allergies Allergy Verified 11/27/19 07:56 Home Medications Home Medications Medication Instructions Recorded Confirmed Type cholecalciferol (vitamin D3) 1,000 unit PO QAM 02/20/19 11/27/19 History [Vitamin D3] simvastatin 20 mg PO PM 02/20/19 11/27/19 History acetaminophen [Tylenol Extra 1,000 mg PO Q8 PRN #90 tab 03/15/19 11/27/19 Rx Strength] oxycodone 5 mg PO Q6H PRN #30 tab MDD 6 tabs 03/15/19 11/27/19 Rx celecoxib [Celebrex] 200 mg PO QAM PRN 11/02/19 11/27/19 History sennosides [Senokot] 17.2 mg PO HS 11/02/19 11/27/19 History multivitamin 1 tab PO DAILY 11/27/19 11/27/19 History Past Med/Surg History Medical History Chronic back pain OCCASIONAL Essential (primary) hypertension Patient states normally 140s systolic, PCP has said if numbers increase will discuss HTN meds GERD (gastroesophageal reflux disease) CONTROLLED Hyperlipidemia Osteoarthritis Surgical History History of bilateral tubal ligation History of colonoscopy X2 History of tonsillectomy History of total hip arthroplasty LEFT Varicose vein of leg RIGHT LEG-ABLATION Social History Preferred Language: Mongolian Communication Ability: Effective Production Pattern Maker Required: No Beliefs That Will Affect Care: None marital status: Current Living Situation: Spouse Other Information That Helps Us Care for You: No Feels Safe at Home: Yes Safety Concerns: Feels Safe At This Time Smoking Status: Never smoker Do You Dip or Chew Tobacco: No ; Second Hand Exposure: No ; Hx Alcohol Use: Yes Alcohol type: beer Hx Substance Use: No Review of Systems Review of Systems: All systems reviewed & are unremarkable except as noted in HPI & below Constitutional: as per Subjective / HPI Physical Exam Physical Exam: RLE NVSI +EHL/FHL/TA/GS SILT grossly, +2 DP pulse, compartments soft NT, limited painful ROM of the hip, antalgic gait Constitutional: WD/WN, vitals as above Eyes: PERRL, conjunctivae normal, anicteric sclerae ENMT: external ear and nose normal, oropharynx normal Neck: trachea midline, no thyromegaly Respiratory: normal respiratory effort, lungs clear to auscultation Cardiovascular: RRR, no murmur, no edema Gastrointestinal (Abdomen): normal bowel sounds, soft, nontender, no hepatosplenomegaly Musculoskeletal: no cyanosis or clubbing, extremities motor strength 5/5 Skin: no rashes, warm and dry Neurologic: patellar DTR's 2+ bilat, sensation intact Psychiatric: A+Ox3, euthymic affect Lymphatic: no cervical or axillary lymphadenopathy Results & Data Diagnostic Findings Multiple views of the hip demonstrates severe DJD with complete loss of the joint space. +osteophytes, +sclerosis, +subchondral cysts.
[~2019-11-27 07:14] MED LIST changes: -BUPIVACAINE 0.5 % 5 MG/1 ML PF 10ML VIAL ONE; +GABAPENTIN 300 MG CAP PO SCH; -MIDAZOLAM HCL 1 MG/ML 2ML VIAL ONE; +ROPIVACAINE 0.5% HCL/PF 150 MG, BUPIVACAINE 0.5% MPF 30 ML, EPINEPHrine 30MG/30ML (OR U... INSTIL SCH; -fentaNYL citrate 100 MCG/2 ML VIAL ONE
[2019-11-27] MEDS ORDERED: BUPIVACAINE 0.5 % 5 MG/1 ML PF 10ML VIAL ONE (07:52)
[2019-11-27] MEDS ORDERED: MIDAZOLAM HCL 1 MG/ML 2ML VIAL ONE (08:56)
[2019-11-27] MEDS ORDERED: ePHEDrine sulfate 50 MG/ML AMP IV PRN (09:28)
[2019-11-27] MEDS ORDERED: ATROPINE SULFATE 0.1 MG/ML 10ML SYR IV PRN (09:28)
[2019-11-27] MEDS ORDERED: LIDOCAINE HCL 2% 2 ML VIAL/AMP(20MG/ML) INFIL ONE (09:31)
[2019-11-27] MEDS ORDERED: PROPOFOL IV EMULSION 10 MG/ML 20 ML VIAL IV ONE (09:31)
--- NOTE | 2019-11-27 09:43 | History & Physical Bridge Note ---
Date of Service November 27, 2019 History & Physical Bridge Note I have examined the patient, reviewed the History & Physical and in the interval since the performance of the History & Physical I have noted the following changes of clinical significance: no changes noted
[2019-11-27] MEDS ORDERED: BACITRACIN INJ 50,000 UNIT VIAL ONE (10:05)
[2019-11-27] MEDS ORDERED: ORTHO JOINT ANESTHETIC ONE (10:05)
[2019-11-27] MEDS ORDERED: PHENYLEPHRINE 100MCG/ML 5ML SYR ONE (12:02)
[2019-11-27] MEDS ORDERED: ePHEDrine sulfate 50 MG/ML SYR ONE (12:02)
--- NOTE | 2019-11-27 12:26 | Post Operative Brief Note ---
Immediate Post Op Note v1 Date of Surgery November 27, 2019 Pre & Post Diagnosis Operation Date: 11/27/19 09:35 Pre-Op Diagnosis: RIGHT HIP OSTEOARTHRITIS Post-Op Diagnosis: RIGHT HIP OSTEOARTHRITIS I identified the patient and participated in the time-out.: Yes Procedure Operation Date: 11/27/19 09:35 Actual Procedures p Right Anterior Total Hip Arthroplasty(Right) - Valeriano Jeffers DO Surgeon Valeriano Jeffers DO License Distributor Javier Lockhart Estimated Blood Loss 150 Findings Consistent with Post-Op Diagnosis Fluids 1000 cc LR Specimens femoral head Anesthesia Type Spinal MAC Complications none Disposition Disposition: Recovery Room Overlapping Procedure I was present for: the critical portions of procedure. I was immediately available: during the entire case. Back up surgeon: was not required during procedure.
--- NOTE | 2019-11-27 12:28 | Operative Report ---
Post Operative Report Pre & Post Diagnosis Operation Date: 11/27/19 09:35 Pre-Op Diagnosis: RIGHT HIP OSTEOARTHRITIS Post-Op Diagnosis: RIGHT HIP OSTEOARTHRITIS I identified the patient and participated in the time-out.: Yes Procedure Operation Date: 11/27/19 09:35 Actual Procedures p Right Anterior Total Hip Arthroplasty(Right) - Valeriano Jeffers DO Surgeon Valeriano Jeffers DO Machine Tack Puller Javier Lockhart Estimated Blood Loss 150 Findings Consistent with Post-Op Diagnosis Fluids 1000 cc LR Specimens femoral head Drains none Anesthesia Type Spinal MAC Complications none Disposition Disposition: Recovery Room Indications The patient is a 69-year-old female who presents with severe progressive right hip DJD who has failed outpatient conservative treatments. I indicated the patient for a total hip replacement and the risks and benefits were explained in detail which included but not limited to infection, bleeding, blood clot, damage to surrounding bone, nerves, vessels, soft tissue, hip dislocation, failure of the prosthesis, leg length discrepancy, need for additional surgery and . The patient agreed to proceed with replacement of the hip and informed consent was obtained. Appropriate clearances were obtained. Description of Procedure COMPONENTS USED: [employer] hip system: Acetabulum size 50, femur size 7 high offset, femoral head 32-3, liner 5032, acetabular screw 25 mm x 1. DESCRIPTION OF PROCEDURE: Following satisfactory spinal anesthesia, the patient was placed supine on the OR table. The left leg was placed in the well leg pittman and the right leg in the traction device. The right leg was prepared with ChloraPrep and draped sterilely. A surgical timeout was performed, patient identified and site kasi verified. Appropriate antibiotics were given. A standard anterior approach in the interval between the sartorius and tensor muscles was performed. Dissection was carried down through subcutaneous tissues. Electrocautery was utilized for hemostasis. Circumflex femoral vessels were identified, tied and ligated. The anterior capsular fat pad was removed and the capsulotomy was performed revealing the arthritic femoral neck and head. A femoral neck cut was made with reciprocating saw and the bone fragments removed. The acetabular self-retraining retractor was placed. Acetabular reaming was completed under fluoroscopic guidance, a 50 shell was impacted into an anatomic position and secured with a dome screw. Local anesthetic was placed and following irrigation, the polyethylene liner was placed. The femur was placed into position of external rotation, extension and adduction. Femoral canal was prepared up to the size 7 high offset. Trial reduction with a -3 neck length head showed good soft tissue tension, leg lengths restored, and good fit and fill of the proximal canal using fluoroscopic landmarks. The hip was dislocated. The trial component was removed. The final implant was placed. The hip was irrigated with sterile saline solution and reduced. A Betadine soak was performed. After 3 minutes, the hip was once more irrigated with copious sterile saline solution with bacitracin. Kristina-incisional soft tissue was injected utilizing [place] [facility] which includes a combination of Ropivicaine 0.5% 150mg, Bupivicaine 0.5%/Epinephrine 1:200,000 30ml, Toradol 30mg, Dexamethasone 4mg, Ketamine 10mg, Clonidine 100mcg and NSS 30ml solution. The capsule was then closed with 1-0 Vicryl interrupted figure of eight sutures. The fascia was closed with a running suture of #1 Vicryl, the subcutaneous tissues with 2-0 Vicryl and the skin with a running subcuticular stitch of 3-0 V-Loc. Dermabond prineo and a dry dressing were applied. The patient tolerated the procedure well and was transported to PACU in stable condition. Due to the complex nature of the procedure, the entire surgery was performed with the operational assistance of Javier Lockhart PA-C. The membership assistant, under direct supervision, was involved in the actual performance of all aspects of the surgical procedure including patient positioning, hemostasis, tissue retraction, instrument management and wound closure. I attest to the content of the Intraoperative Record and any orders documented therein. Any exceptions are noted below.
--- NOTE | 2019-11-27 12:35 | Fluoroscopy Report ---
FL hip RT 1V CLINICAL HISTORY: RT ANTERIOR HIP COMPARISON STUDY: None FLUOROSCOPY TIME: 54 seconds NUMBER OF FLUOROSCOPIC IMAGES: 2 FINDINGS: Image intensifier utilized for a right anterior hip total arthroplasty IMPRESSION: Image intensifier utilization for a right anterior hip total arthroplasty. ACT 112: Negative or not required by law. The above report was generated using voice recognition software. It may contain grammatical, syntax or spelling errors. Electronically signed by: Cedric Loera M.D. 11/27/2019 12:34 PM
--- NOTE | 2019-11-27 13:27 | XRay Report ---
SINGLE VIEW PELVIS; SINGLE VIEW RIGHT HIP CLINICAL HISTORY: Postoperative examination. FINDINGS: An AP portable view of the hips and pelvis with a crosstable lateral portable view of the r ight hip are obtained. A bipolar right hip arthroplasty is in near-anatomic alignment. A single corti yassine lag screw transfixes the acetabular cup. No acute fracture is identified. Subcutaneous gas and so ft tissue swelling overlying the right hip are expected postoperative findings. A left hip arthroplas ty is also in place. Sclerotic change is noted in the sacroiliac joints. IMPRESSION: Expected postoperative findings status post right hip arthroplasty. No acute fracture is seen. ACT 112: Negative or not required by law. Electronically signed by: Vic Oconnor M.D. 11/27/2019 1:26 PM
[2019-11-27] MEDS ORDERED: NALOXONE HCL 0.4 MG/1 ML VIAL/CARP IV PRN (14:05)
[2019-11-27] MEDS ORDERED: bisacodyL 10 MG SUPP PR PRN (14:05)
[2019-11-27] MEDS ORDERED: ONDANSETRON INJ 2 MG/ML 2 ML VIAL IV PRN (14:05)
[2019-11-27] MEDS ORDERED: HYDROmorphone INJ 0.5 MG/0.5 ML SYR IV PRN (14:05)
[2019-11-27] MEDS ORDERED: METOCLOPRAMIDE HCL INJ 5 MG/ML 2 ML VIAL IV PRN (14:05)
[2019-11-27] MEDS ORDERED: OXYCODONE HCL IR 5 MG TAB (IMMEDIATE RELEASE) PO PRN (14:05)
[2019-11-27] MEDS ORDERED: MAGNESIUM HYDROXIDE SUSP 30 ML UDC PO PRN (14:05)
--- NOTE | 2019-11-27 14:12 | Anesthesiology Progress Note ---
Date of Service November 27, 2019 Anesthesia Post Procedure Vital Signs Vital Signs: Temp Pulse Pulse Resp BP Pulse Ox 11/27/19 13:20 36.7 C 66 17 123/70 100 11/27/19 13:10 36.7 C 65 22 128/64 100 11/27/19 13:00 63 12 124/64 100 11/27/19 12:50 66 12 125/70 99 11/27/19 12:43 36.5 C 71 16 116/62 98 11/27/19 07:58 36.6 C 66 18 170/90 H 97 Transfer of Care Handoff Completed per policy Notes Mental Status: alert / awake / arousable and participated in evaluation Patient Amnestic to Procedure: Yes Nausea / Vomiting: adequately controlled Pain: adequately controlled Airway Patency, RR, SpO2: stable & adequate BP & HR: stable & adequate Hydration State: stable & adequate Anesthetic Complications: no major complications apparent
[2019-11-27] MEDS: ACETAMINOPHEN 500 MG TAB PO SCH ×2 (15:06→21:47)
[2019-11-27] MEDS: KETOROLAC TROMETHAMINE 15 MG/ML VIAL IV SCH ×2 (15:07→20:24)
[2019-11-27] MEDS: SODIUM CHLORIDE 0.9% 1000ML 1,000 ML IV SCH ×2 (15:08→23:44)
--- NOTE | 2019-11-27 16:33 | Orthopedic Progress Note ---
Date of Service November 27, 2019 Assessment & Plan (1) Degenerative joint disease of right hip: Status post right anterior total hip arthroplasty -Ancef x24 -DVT prophylaxis: SCDs, teds, ASA twice daily -Weight-bear as tolerated right lower extremity -PT/OT -Postoperative x-ray demonstrates a well aligned well fixed total hip prosthesis without evidence of fracture or dislocation. -A.m. labs -DC planning Admission and Anticipated Discharge Date Admission Date: November 27, 2019 Subjective Post Operative Progress Note Patient seen sitting up in bed, comfortable, denies complaints, pain well controlled, no acute issues. Review of Systems Review of Systems: All systems reviewed & are unremarkable except as noted in HPI & below Constitutional: as per Subjective / HPI Physical Exam Physical Exam: RLE NVSI +EHL/FHL/TA/GS SILT grossly, +2 DP pulse, compartments soft NT, dressing cdi. Constitutional: WD/WN, vitals as above Results & Data ([facility]) Vital Signs (Past 12 Hours) Vital Signs Temp Pulse Pulse Resp BP Pulse Ox 11/27/19 16:30 36.4 C L 74 16 144/72 H 97 11/27/19 15:35 36.5 C 72 16 135/78 96 11/27/19 14:24 67 16 139/78 100 11/27/19 14:13 62 16 131/76 96 11/27/19 13:35 36.4 C L 69 16 120/72 98 11/27/19 13:20 36.7 C 66 17 123/70 100 11/27/19 13:10 36.7 C 65 22 128/64 100 11/27/19 13:00 63 12 124/64 100 11/27/19 12:50 66 12 125/70 99 11/27/19 12:43 36.5 C 71 16 116/62 98 11/27/19 07:58 36.6 C 66 18 170/90 H 97
[2019-11-27] MEDS: CEFAZOLIN 2000MG 2,000 MG/15 ML SYR IV SCH (18:18)
[2019-11-27] MEDS: DOCUSATE SODIUM 100 MG CAP PO SCH (20:24)
[2019-11-27] MEDS ORDERED: SENNA 8.6 MG TAB PO SCH (21:00)
[2019-11-27] MEDS ORDERED: SIMVASTATIN 20 MG TAB PO SCH (21:00)
[2019-11-28] MEDS: CEFAZOLIN 2000MG 2,000 MG/15 ML SYR IV SCH (02:30)
[2019-11-28] MEDS: KETOROLAC TROMETHAMINE 15 MG/ML VIAL IV SCH ×2 (02:30→08:43)
[2019-11-28 05:31] LABS: Basophils # (auto) 0.01 K/uL (0-0.2); Basophils % (auto) 0.1 %; Hematocrit (blood only) 35.6 % (37-47); Hemoglobin 12.1 g/dL (12.0-16.0); Immature Granulocytes # (auto) 0.04 K/uL (0.00-0.02); Immature Granulocytes % (auto) 0.3 %; Lymphocytes # (auto) 1.67 K/uL (1.2-3.4); Lymphocytes % (auto) 10.8 %; Mean Corpuscular Hemoglobin 31.1 pg (25-34); Mean Corpuscular Volume 91.5 fL (80-100); Mean Platelet Volume 11.6 fL (7.4-10.4); Monocytes # (auto) 1.21 K/uL (0.11-0.59); Monocytes % (auto) 7.8 %; Neutrophils # (auto) 12.59 K/uL (1.4-6.5); Platelet Count 205 K/uL (130-400); RDW Coefficient of Variation 13.3 % (11.5-14.5); RDW Standard Deviation 44.2 fL (36.4-46.3); Red Blood Count 3.89 M/uL (4.2-5.4); White Blood Count 15.52 K/uL (4.8-10.8)
[2019-11-28] MEDS: ACETAMINOPHEN 500 MG TAB PO SCH (05:48)
[2019-11-28 06:05] LABS: BUN Creatinine Ratio 20.8 (10-20); Calcium 8.1 mg/dl (8.5-10.1); Creatinine Clr Calc Pharmacy 75.7 ml/min; Est GFR (African American) 100.7; Est GFR (Non-African American) 86.9; Potassium 3.8 mmol/L (3.5-5.1)
--- NOTE | 2019-11-28 07:20 | Anesthesiology Progress Note ---
Date of Service November 28, 2019 Anesthesia Post Procedure Vital Signs Vital Signs: Temp Pulse Pulse Resp BP Pulse Ox 11/28/19 02:42 36.4 C L 68 16 111/66 96 11/27/19 23:27 36.4 C L 64 16 113/67 98 11/27/19 19:12 36.6 C 68 16 127/71 97 11/27/19 16:30 36.4 C L 74 16 144/72 H 97 11/27/19 15:35 36.5 C 72 16 135/78 96 11/27/19 14:24 67 16 139/78 100 11/27/19 14:13 62 16 131/76 96 11/27/19 13:35 36.4 C L 69 16 120/72 98 11/27/19 13:20 36.7 C 66 17 123/70 100 11/27/19 13:10 36.7 C 65 22 128/64 100 11/27/19 13:00 63 12 124/64 100 11/27/19 12:50 66 12 125/70 99 11/27/19 12:43 36.5 C 71 16 116/62 98 11/27/19 07:58 36.6 C 66 18 170/90 H 97 Notes Mental Status: alert / awake / arousable and participated in evaluation Patient Amnestic to Procedure: Yes Nausea / Vomiting: adequately controlled Pain: adequately controlled Airway Patency, RR, SpO2: stable & adequate BP & HR: stable & adequate Hydration State: stable & adequate Neuraxial Anesthesia: was administered and sensory block resolved Anesthetic Complications: no major complications apparent and Pt Satisfied with anesthetic care
[2019-11-28] MEDS ORDERED: ACETAMINOPHEN 500 MG TAB PO SCH (08:00)
[2019-11-28] MEDS: DOCUSATE SODIUM 100 MG CAP PO SCH (08:42)
[2019-11-28] MEDS ORDERED: ASPIRIN 325 MG ECTAB PO SCH (09:00)
[2019-11-28] MEDS ORDERED: MULTIVITAMIN TAB PO SCH (09:00)
--- NOTE | 2019-11-28 09:35 | Orthopedic Progress Note ---
Date of Service November 28, 2019 Assessment & Plan (1) Degenerative joint disease of right hip: Status post right anterior total hip arthroplasty, POD #1 -Ancef x24 -DVT prophylaxis: SCDs, teds, ASA twice daily -Weight-bear as tolerated right lower extremity -PT/OT -Postoperative x-ray demonstrates a well aligned well fixed total hip prosthesis without evidence of fracture or dislocation. -A.m. labs, stable -DC planning home w today Admission and Anticipated Discharge Date Admission Date: November 27, 2019 Supervising Physician Co-Signing Physician Notes Patient seen and examined, agree with above assessment and plan. Subjective Post Op Day #1 Patient seen sitting up in bed, comfortable, denies complaints, pain well controlled, no acute issues. Review of Systems Review of Systems: All systems reviewed & are unremarkable except as noted in HPI & below Constitutional: as per Subjective / HPI Physical Exam Physical Exam: Right hip dressings drain c/d/i, no drainage toes/ ankle mobile no calf tenderness A&Ox3 Results & Data ([facility]) Vital Signs (Past 12 Hours) Vital Signs Temp Pulse Resp BP Pulse Ox 11/28/19 07:20 36.5 C 65 18 130/75 100 11/28/19 02:42 36.4 C L 68 16 111/66 96 11/27/19 23:27 36.4 C L 64 16 113/67 98
--- NOTE | 2019-11-28 12:34 | Orthopedic Progress Note ---
Date of Service November 28, 2019 Assessment & Plan (1) Degenerative joint disease of right hip: Status post right anterior total hip arthroplasty POD #1 -Ancef x24 -DVT prophylaxis: SCDs, teds, ASA twice daily -Weight-bear as tolerated right lower extremity -PT/OT -Postoperative x-ray demonstrates a well aligned well fixed total hip prosthesis without evidence of fracture or dislocation. -A.m. labs - hgb 12.1, see above -DC planning home with HH Admission and Anticipated Discharge Date Admission Date: November 27, 2019 Subjective Post Operative Progress Note Patient seen ambulating in room, comfortable, denies complaints, pain well controlled, no acute issues. Denies F/C/N/V/SOB/CP. Review of Systems Review of Systems: All systems reviewed & are unremarkable except as noted in HPI & below Constitutional: as per Subjective / HPI Physical Exam Physical Exam: RLE NVSI +EHL/FHL/TA/GS SILT grossly, +2 DP pulse, compartments soft NT, dressing cdi. Constitutional: WD/WN, vitals as above Results & Data ([facility]) Vital Signs (Past 12 Hours) Vital Signs Temp Pulse Resp BP Pulse Ox 11/28/19 11:17 36.6 C 68 16 114/68 98 11/28/19 07:20 36.5 C 65 18 130/75 100 11/28/19 02:42 36.4 C L 68 16 111/66 96 Laboratory Results 11/28/19 11/28/19 11/28/19 Range/Units 05:02 05:02 05:02 WBC 15.52 H (4.8-10.8) K/uL RBC 3.89 L (4.2-5.4) M/uL Hgb 12.1 (12.0-16.0) g/dL Hct 35.6 L (37-47) % MCV 91.5 (80-100) fL MCH 31.1 (25-34) pg MCHC 34.0 (32-36) g/dL RDW Std Deviation 44.2 (36.4-46.3) fL RDW Coeff of Oswaldo 13.3 (11.5-14.5) % Plt Count 205 (130-400) K/uL MPV 11.6 H (7.4-10.4) fL Immature Gran % (Auto) 0.3 % Neut % (Auto) 81.0 % Lymph % (Auto) 10.8 % Oxford % (Auto) 7.8 % Eos % (Auto) 0.0 % Baso % (Auto) 0.1 % Immature Gran # (Auto) 0.04 H (0.00-0.02) K/uL Neut # (Auto) 12.59 H (1.4-6.5) K/uL Lymph # (Auto) 1.67 (1.2-3.4) K/uL Oxford # (Auto) 1.21 H (0.11-0.59) K/uL Eos # (Auto) 0.00 (0-0.5) K/uL Baso # (Auto) 0.01 (0-0.2) K/uL Sodium 143 (136-145) mmol/L Potassium 3.8 (3.5-5.1) mmol/L Chloride 114 H (98-107) mmol/L Carbon Dioxide 23 (21-32) mmol/L Anion Gap 6.0 (3-11) BUN 15 (7-18) mg/dl Creatinine 0.71 (0.6-1.2) mg/dl Est Cr Clr Drug Dosing 75.7 ml/min Est GFR ( Amer) 100.7 Est GFR (Non-Af Amer) 86.9 BUN/Creatinine Ratio 20.8 H (10-20) Glucose 121 H (70-99) mg/dl Calcium 8.1 L (8.5-10.1) mg/dl Hepatitis C Ab Screen Neg (Neg)
[2019-11-28] MEDS ORDERED: CeleBREX 200 MG CAP PO SCH (14:00)
--- NOTE | 2019-11-28 22:50 | Discharge Summary ---
Date of Service November 28, 2019 Admission HPI Per Admitting Provider The patient is a 69 year old female who presents with complaints of severe right hip pain and DJD. The patient has failed outpatient conservative treatments to this point which included NSAIDs, IA corticosteroid injection, PT, home exercise/walking program. The patient's pain and limited function have progressed to the point where they severely hinder their activities of daily living and they no longer tolerate exercise programs. They are requesting to proceed with total hip replacement surgery. Principal Diagnosis Right anterior total hip replacement -right hip djd Discharge Exam RLE NVSI +EHL/FHL/TA/GS SILT grossly, +2 DP pulse, compartments soft NT, dressing cdi. Constitutional WD/WN, vitals as above Discharge Data Allergies Allergy/AdvReac Type Severity Reaction Status Date / Time No Known Allergies Allergy Verified 11/27/19 07:56 Consultations 11/28/19 08:00 Consult Case Management - Discharge Planning Routine Procedures Performed Operation Date: 11/27/19 09:35 Actual Procedures p Right Anterior Total Hip Arthroplasty(Right) - Valeriano Jeffers DO Ordered Studies 11/27/19 09:35 FL fluoroscopy <1hr Routine FL hip RT 1V Routine Hospital Course (1) Degenerative joint disease of right hip: The patient is a 69 -year-old female who presents with long standing history of severe right hip DJD and failed outpatient conservative treatments. The patient's symptoms have progressed to the point where it has been difficult to perform even normal activities of daily living. I indicated the patient for a right total hip arthroplasty, the risks, benefits and complications of the procedure include but not limited to infection, bleeding, damage to bone, nerves, vessels, surrounding soft tissue, may develop blood clots, loss of function, leg length discrepancy, dislocation, failure of the components, loosening of the components, the need for additional surgery and . The patient wished to proceed with surgery at this time and informed consent was obtained. Hospital Course: On 11/28/19 the patient was taken to the operating room, adequate anesthesia administered and underwent a right anterior total hip arthroplasty. The patient tolerated the procedure well and was taken to the PACU in stable condition. Post-operatively the patient was started on a DVT ppx medication and given appropriate IV antibiotics. Consults were placed to physical therapy, occupational therapy and case management. On POD#1, the patient did well overnight and their pain was well controlled. Labs were drawn and the Hgb was 12.1. The patient progressed well with PT. Dressings were changed at this time and the incision was clean, dry and intact. On POD#2, The patients hospital stay was relatively uneventful and they were deemed stable by the orthopedic team and consultants to be discharged home with HH on 11/28/19. Discharge Instructions: Upon discharge the patient may weight bear as tolerates through their operative extremity. They were instructed to keep the incision clean and dry at all times. The patient may shower but should not submerge the incision, avoid ba thing, pools and hot tubes. The patient was given a script for pain medication and should take as instructed. The patient was given a script for DVT ppx 325mg ASA BID and should take as directed. The patient was instructed to not drive or travel for long distances until cleared to do so. If the patient develops any symptoms of fevers, chills, nausea, vomiting, increased redness, swelling, pain or drainage from the surgical site, they should notify the office and/or proceed to the nearest emergency room. The patient should follow up in 10-14 days after surgery for their routine post-operative follow-up appointment and should call the office to confirm the date and time. Status post right anterior total hip arthroplasty POD #1 -Ancef x24 -DVT prophylaxis: SCDs, teds, ASA twice daily -Weight-bear as tolerated right lower extremity -PT/OT -Postoperative x-ray demonstrates a well aligned well fixed total hip prosthesis without evidence of fracture or dislocation. -A.m. labs - hgb 12.1, see above -DC planning home with Total Time Total Time Spent Total Time Spent (In Minutes): 30 minutes Discharge Plan Discharge Items Patient Disposition: Home - Home Health Services Reason For Visit: RIGHT HIP OSTEOARTHRITIS Discharge Diagnosis: Right anterior total hip replacement -right hip djd Condition on Discharge: Good Activity: Per Instructions section Lifting: Wait until after follow-up appointment Bathing: Keep incision dry Bathing Comment: No bathing, pools or hot tubs. Sexual Activity: Wait until after follow-up appointment Exercise/Sports: Wait until after follow-up appointment Driving/Machine Use: No driving Weightbearing: Full weightbearing Non-emergency contact: Primary Care Provider and Surgeon Call non-emergency contact if: you have any medication questions, your symptoms worsen, your pain is not controlled, your pain is worsening, your pain is unusual for you, your pain is concerning for you, you have a fever, your tem perature is above 101, your wound has increased redness, your wound has increased drainage and your wound pain has increased Follow-up/Referrals: Gerson Yanez CRNP [Primary Care Provider] - Diet: Regular Addtl Attending Provider Instructions: ACTIVITY RECOMMENDATIONS: SELF CARE INSTRUCTIONS AFTER TOTAL HIP REPLACEMENT : Direct Anterior Approach Until the incision and soft tissues around your hip have healed, there is a possibility that the hip prosthesis could dislocate. A. Hip flexion ( Up & Down out of chair or steps ) may be difficult. This is normal. B. Numbness in front of the thigh is also normal for a few weeks. C. Use hand rails when walking on stairs. D. Wear low heeled shoes with non-slip soles. E. Be sure that your floors are free of things that could trip you - throw rugs, electrical cords, small objects. Avoid wet and waxed floors, especially with crutches and canes. F. Try to walk several times a day with rest periods between. G. Continue with all the exercises taught to you in the hospital. Again, make walking a part of your daily routine. SPECIAL CARE INSTRUCTIONS: VERY IMPORTANT TO READ AND REVIEW A. You may still be at risk for phlebitis and blood clots. 1. Wear surgical stockings (KARLY hose) for 2 weeks after surgery to improve circulation and reduce swelling. 2. Take Aspirin 325mg twice daily for 4 weeks or as directed by your doctor. This is your blood thinner. 3. High risk patients may be prescribed a stronger blood thinner if necessary. 4. If you are on Coumadin normally, your family doctor/manager environmental services should monitor your blood work. Expect a phone call the day of or the day after bloodwork is drawn to adjust your dosage. B. You must take antibiotics before having dental work, bladder, bowel and other surgery. Your doctor will provide you with a permanent card to carry describing precautions. C. Call [facility] if you have a fever, redness or swelling around the incision, cloudy drainage from incision, or sudden increase in pain in your hip, not relieved by your regular pain medication. D. Please call the office at if you have any concerns or questions about your operation or recovery. * YOU MAY SHOWER, NO TUB BATHS UNTIL CLEARED BY YOUR DOCTOR. - Keep an extra close eye on the top portion of your incision. Be sure to keep clean & dry. * WEAR KARLY HOSE 20 HOURS PER DAY FOR 2 WEEKS. * YOU MAY PROGRESS FROM A WALKER, TO A CANE, TO INDEPENDENT AT YOUR OWN PACE. * MOST PATIENTS WILL HAVE HOME NURSING FOR THERAPY. IF YOU DECIDE TO DO OUTPATIENT PHYSICAL THERAPY, PLEASE SCHEDULE THIS 3 TIMES PER WEEK. * DERMABOND Prineo- This is a mesh tape dressing that is covered with glue. It should remain in place until the incision is properly healed, usually 10-14 days. This dressing is designed to naturally slough off. You may trim the excess mesh tape as it peels off. Incision may be briefly wet in a shower. Dry immediately by blotting with a clean, dry towel. Do not bath or swim until instructed by your doctor. Do not scratch, rub, or pick at the dressing. Do not apply any topical ointments or lotions until dressing is completely removed and/or instructed by your doctor. There may be a small piece of suture material at one end of your incision. Do not pull or trim this. If it is bothersome or catching on clothing, you may cover it with a band-aid. FOLLOW UP VISIT: If appointment is not already scheduled: Please call [facility] to make a follow-up appointment for 2 weeks after your surgery at . Pending Studies at Discharge: No Stand-Alone Forms: My [facility], Opioid Pain Management, Smoking Cessation Medications and DC Order Prescriptions: New celecoxib [Celebrex] 200 mg Capsule 200 mg PO BID PRN (Reason: pain/inflammation) Qty: 28 RF: 0 acetaminophen 500 mg Tablet 1,000 mg PO Q8 PRN (Reason: pain/fevers) Qty: 90 RF: 0 aspirin 325 mg Tablet,Delayed Release (Dr/Ec) 325 mg PO BID Qty: 56 RF: 0 oxycodone 5 mg Tablet 5 mg PO Q6H MDD 4 tabs PRN (Reason: pain) Qty: 30 RF: 0 sennosides [Senokot] 8.6 mg Tablet 17.2 mg PO HS PRN (Reason: constipation) Qty: 28 RF: 0 Continued simvastatin 20 mg Tablet 20 mg PO PM RF: 0 cholecalciferol (vitamin D3) [Vitamin D3] 400 unit Tablet 1,000 unit PO QAM RF: 0 sennosides [Senokot] 8.6 mg tablet 17.2 mg PO HS RF: 0 multivitamin Tablet 1 tab PO DAILY RF: 0 Discontinued acetaminophen [Tylenol Extra Strength] 500 mg Tablet 1,000 mg PO Q8 PRN (Reason: pain) Qty: 90 RF: 0 oxycodone 5 mg Tablet 5 mg PO Q6H MDD 6 tabs PRN (Reason: pain) Qty: 30 RF: 0 celecoxib [Celebrex] 200 mg capsule 200 mg PO QAM PRN (Reason: pain) RF: 0 Discharge Orders: Discharge Order (Routine); Ordered 11/28/19 Ordered By: Cedric Bass/Other Patient Handouts: Surgery Prevent DVT After Admission Data Admit Date/Time: 11/27/19 12:49 Attending Provider: Valeriano Jeffers Admit Provider: Valeriano Jeffers Primary Care Provider: Gerson Yanez Other Interventions: Discharge Summary Assessment (RN) Last Done: 11/28/19 11:05 DC Date/Time DO NOT enter until pt leaves facility: 11/28/19 13:32
== END 2019-11-28 13:32 | disposition home health service (06) | DRG 470 ==
LOC: ASU 07:14 → 3E 12:49